=== PATIENT | female | born 1995 | race African-American/Black ===

== ENCOUNTER 2021-01-06 19:43 | Emergency (ER) | payer MEDICAID ==
[~2021-01-06] VITALS: Ht 165.1 cm; Wt 95.0 kg
[~2021-01-06 19:43] MED LIST: UNK MEDS
[2021-01-06 19:45] VITALS: BP 113/75
[2021-01-06] MEDS ORDERED: IPRATROPIUM BROMIDE (0.02%) 0.5MG/2.5ML NEB HHN STA (20:43)
[2021-01-06] MEDS ORDERED: PREDNISONE 20MG TABLET PO STA (20:43)
[2021-01-06] MEDS ORDERED: ALBUTEROL (0.083%) 2.5MG/3ML NEB HHN STA (20:43)
== END 2021-01-06 21:00 | disposition left against medical advice (07) ==
LOC: ER 19:43
DX: J45.909 Unspecified asthma, uncomplicated (principal); R07.9 Chest pain, unspecified; Z88.6 Allergy status to analgesic agent
CPT/HCPCS: 93005; 99283

== ENCOUNTER 2021-12-26 04:17 | Emergency (ER) | payer MEDICAID, OTHER ==
[~2021-12-26] VITALS: Ht 165.1 cm; Wt 85.2 kg
[2021-12-26 04:21] VITALS: BP 146/122
[2021-12-26] MEDS ORDERED: ONDA4TAB5 PO (05:09)
[2021-12-26] MEDS ORDERED: IBUP-2030 PO (05:09)
[2021-12-26] MEDS ORDERED: AMOX-424 PO (05:09)
[2021-12-26] MEDS ORDERED: T3 PO (05:09)
[2021-12-26] MEDS ORDERED: FLUC100T PO (05:11)
[2021-12-26] MEDS ORDERED: ACETAMINOPHEN 325MG TABLET PO ONE (05:15)
[2021-12-26] MEDS ORDERED: FLUCONAZOLE 100MG TABLET PO ONE (05:15)
[2021-12-26] MEDS ORDERED: ONDANSETRON HCL 4MG TABLET PO ONE (05:15)
== END 2021-12-26 05:53 | disposition home or self-care (01) ==
LOC: ER 04:17
DX: K04.7 Periapical abscess without sinus (principal); J45.909 Unspecified asthma, uncomplicated; Z88.6 Allergy status to analgesic agent
CPT/HCPCS: 99284; Q0162